=== PATIENT | female | born 1970 | race Caucasian/White ===

== ENCOUNTER 2024-05-27 05:00 | Day surgery (SDC) | payer OTHER ==
[2024-05-25 08:39] VITALS: BP 120/79
[2024-05-25 08:48] LABS: HEMATOCRIT 40.6 % (36.0-45.00); HEMOGLOBIN 13.7 g/dL (12.0-15.00); MEAN CELL VOLUME 86.5 fL (80.00-100.00); MEAN CORPUSCULAR HEMOGLOBIN 29.2 pg (27.00-32.0); MEAN CORPUSCULAR HGB CONC 33.8 g/dl (32.0-36.0); PLATELET COUNT 286 K/uL (150-450); RED BLOOD COUNT 4.69 M/uL (4.00-6.00); RED CELL DISTRIBUTION WIDTH 14.1 % (11.5-14.5)
[2024-05-25 08:49] LABS: PH,URINE 5.5 (5.0-8.0); URINE APPEARANCE Clear; URINE BILIRRUBIN Negative (NEGATIVE); URINE BLOOD Negative; URINE COLOR Yellow; URINE GLUCOSE Negative (NEGATIVE); URINE KETONE Negative (NEGATIVE); URINE LEUKOCYTE Negative; URINE NITRATE Positive; URINE PROTEIN Negative (NEGATIVE); URINE UROBILINOGEN 0.2 E.U./dl
[2024-05-25 08:53] LABS: URINE EPITHELIAL CELLS 13.9 uL (0.0-38.8); URINE RBC 13.1 uL (0.0-20.8); URINE WBC 29.1 uL (0.0-23.2)
[2024-05-25 09:04] LABS: URINE BACTERIA > 9821.5 uL (0.0-1933); URINE CAST 0.29 uL (0.0-1.40)
[2024-05-25 09:09] LABS: INR 1.03; PARTIAL THROMBOPLASTIN TIME 28.4 SECONDS (22.0-34.0); PROTHROMBIN TIME 11.2 SECONDS (9.0-11.5)
[2024-05-25 09:28] LABS: ALBUMIN 3.9 gm/dL (3.4-5.0); BILIRUBIN TOTAL 0.44 mg/dL (0.3-1.2); CALCIUM 8.9 mg/dL (8.5-10.1); CREATININE SERUM 0.71 mg/dL (0.55-1.02); GFR 86.44; GLOBULINA 3.9 G/DL (2.4-3.5); POTASSIUM 4.03 mEq/L (3.5-5.1); TOTAL PROTEIN 7.8 gm/dL (6.4-8.2)
[~2024-05-27] VITALS: Ht 152.4 cm; Wt 76.7 kg
[~2024-05-27 05:00] MED LIST: CIPRO500 MG PO; PEPCID AC20 MG; PROAIR RESPICL90 MCG IH; PROTONIX40 MG PO; QVAR REDIHALE10.6 G1 IH; SINGULAIR10 MG; ZYRTEC10 M3
[2024-05-27] MEDS ORDERED: CEFAZOLIN SODIUM 1,000 MG VIAL ONE (06:41)
[2024-05-27] MEDS ORDERED: POVIDONE-IODINE 118 ML BOTT TOP ONE (06:41)
[2024-05-27] MEDS ORDERED: CHLORHEXIDINE GLUCONATE 120 ML BOTTLE TOP ONE (06:58)
[2024-05-27] MEDS ORDERED: DOXYCYCLINE HY100 MG PO (08:25)
[2024-05-27] MEDS ORDERED: NAPROXEN500 MG PO (08:25)
== END 2024-05-27 12:50 | disposition home or self-care (01) ==
LOC: CIR.AMB 05:00
PROVIDERS: ATTEND Obstetrics & Gynecology
DX: D25.0 Submucous leiomyoma of uterus (principal); N84.0 Polyp of corpus uteri; N92.0 Excessive and frequent menstruation with regular cycle; Z91.013 Allergy to seafood; K21.9 Gastro-esophageal reflux disease without esophagitis; G47.30 Sleep apnea, unspecified

== ENCOUNTER → 2024-09-28 | Emergency (ER) | payer OTHER ==
[~2024-09-28] VITALS: Ht 152.4 cm; Wt 73.9 kg
[~2024-09-28] MED LIST changes: +BACTRIM DS TAB1 EACH PO; +CEFTRIAXONE SODIUM 1,000 MG VIAL IM ONE; +CEFTRIAXONE SODIUM 1,000 MG VIAL ONE; +DICLOFENAC SODI75 MG PO; +DOXYCYCLINE HY100 MG PO; +KETOROLAC TROMETHAMINE 60 MG VIAL IM ONE; +LIDOCAINE HCL/MPF 1% 2ML AMPUL IJ ONE; +NAPROXEN500 MG PO
== END | disposition home or self-care (01) ==
LOC: ER 12:20
DX: N75.1 Abscess of Bartholin's gland (principal); Z91.013 Allergy to seafood